=== PATIENT | male | born 1980 | race Caucasian/White ===

== ENCOUNTER 2023-09-14 01:04 | Emergency (ER) | payer MEDICAID, OTHER ==
[~2023-09-14] VITALS: Ht 175.3 cm; Wt 92.8 kg
[2023-09-14 02:54] LABS: Urine Bacteria NONE SEEN /hpf (None Seen); Urine Blood TRACE /uL (Negative); Urine Clarity Clear (Clear); Urine Color Yellow (Yellow); Urine Protein, UAD Negative (Negative); Urine Specific Gravity 1.019 (1.001-1.035); Urine Urobilinogen Normal (Negative); Urine WBC <1 /hpf (0 - 3)
[2023-09-14 02:59] LABS: COVID19 ANTIGEN SOFIA FIA NEGATIVE (NEGATIVE)
[2023-09-14] MEDS ORDERED: DexAMETHasone SOD PHOS 10MG/1ML VIAL INJ IM ONE (03:15)
[2023-09-14] MEDS ORDERED: CLINDAMYCIN HCL 150 MG CAP PO ONE (03:15)
[2023-09-14] MEDS ORDERED: HYDROcodone-ACET 5/325MG TAB PO ONE (03:15)
[2023-09-14] MEDS ORDERED: CLIN300C70 PO (03:16)
[2023-09-14] MEDS ORDERED: IBUP-1455 PO (03:16)
[2023-09-14 04:05] VITALS: BP 107/86; PULSE 100; RESP 18; TEMP 98.4; O2SAT 97
== END 2023-09-14 04:00 | disposition home or self-care (01) ==
LOC: ER 01:04
DX: R50.9 Fever, unspecified (principal); L03.113 Cellulitis of right upper limb; R07.89 Other chest pain; Z20.822 Contact with and (suspected) exposure to COVID-19
CPT/HCPCS: 36415; 71045; 73080; 81001; 87426; 96372; 99284; J1100

== ENCOUNTER 2023-09-17 16:53 | Emergency (ER) | payer MEDICAID ==
[~2023-09-17] VITALS: Ht 175.3 cm; Wt 95.5 kg
[~2023-09-17 16:53] MED LIST: CLIN300C70 PO; IBUP-1455 PO
[2023-09-17 17:19] VITALS: BP 139/85; PULSE 93; RESP 15; O2SAT 98
== END 2023-09-17 23:24 | disposition left against medical advice (07) ==
LOC: ER 16:53 → UNDOADMIN 21:49 → TELE 21:49 → ER 23:24
DX: L03.113 Cellulitis of right upper limb (principal); Z53.21 Procedure and treatment not carried out due to patient leaving prior to being seen by health care provider

== ENCOUNTER 2025-01-25 08:41 | Inpatient (IN) | payer MEDICAID ==
[~2025-01-25] VITALS: Ht 177.8 cm; Wt 96.6 kg
[~2025-01-25 08:41] MED LIST changes: +CLIN1CAP70 PO; -CLIN300C70 PO
[2025-01-25] MEDS ORDERED: LORazepam 2MG/ML-1ML VIAL IV ONE (09:00)
--- NOTE | 2025-01-25 09:05 | ECG ---
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
--- NOTE | 2025-01-25 09:07 | ED.PDOC ---
HPI Comments 44 year old male MYLES presents to the ED with chief complaint of chest pain. Patient reports that he has been experiencing left sided chest pain for the past 3 days, worsening today and with associated lightheadedness and facial numbness. Patient relays that he has been monitoring his BP over the past few days and it has been fluctuating from low to high multiple times throughout the day. Patient notes he is not currently on any BP medication. Patient denies any SOB, dizz iness, headache, blurred vision, weakness, or fever. Chief Complaint: Chest Pain Time Seen by MD: 09:04 Primary Care Provider: NONE Reviewed Notes: Nurses Notes, Care Trainer Notes, Medications, Allergies Allergies: Coded Allergies: NO KNOWN ALLERGIES (Unverified , 09/14/23) Home Meds Active Scripts Ibuprofen Micronized (Ibuprofen) 800 Mg Tab, 1 TAB PO Q8HR, #20 TAB As needed for fever or pain Prov:CARLOTA SHEARER NP 09/14/23 Clindamycin Hcl (Clindamycin Hcl) 300 Mg Cap, 1 CAP PO QID for 10 Days, #40 CAP Prov:CARLOTA SHEARER LINEN MANAGER 09/14/23 Information Source: Patient, Emergency Med Personnel Mode of Arrival: EMS Severity: Moderate Timing: Days Duration: Since onset Prehospital treatment: None Location: Chest (L) Radiation: No Radiation Quality: Aching Onset: At Rest Cardiac Risk Factors: Smoker PE Risk Factors: None History of: None Past Medical History PAST MEDICAL HISTORY: Denies Surgical History: Denies all surgeries Family History Family History: Reviewed,noncontributory to illness Social History Smoker: Other (Vapes) Alcohol: Denies ETOH Use Drugs: Denies Drug Use Lives In: Home Constitutional: denies: chills, diaphoresis, fatigue, fever, malaise, sweats, weakness, others EENTM: denies: blurred vision, double vision, ear bleeding, ear discharge, ear drainage, ear pain, ear ringing, eye pain, eye redness, hearing loss, mouth pain, mouth swelling, nasal discharge, nose bleeding, nose congestion, nose pain, photophobia, tearing, throat pain, throat swelling, voice changes, others Respiratory: denies: cough, hemoptysis, orthopnea, SOB at rest, shortness of breath, SOB with excertion, stridor, wheezing, others Cardiovascular: reports: chest pain, lightheadedness; denies: dizzy spells, diaphoresis, Dyspnea on exertion, edema, irregular heart beat, left arm pain, palpitations, PND, syncope, others Gastrointestinal: denies: abdomen distended, abdominal pain, blood streaked bowels, constipated, diarrhea, dysphagia, difficulty swallowing, hematemesis, melena, nausea, poor appetite, poor fluid intake, rectal bleeding, rectal pain, vomiting, others Genitourinary: denies: burning, dysuria, flank pain, frequency, hematuria, incontinence, penile discharge, penile sore, pain, testicle pain, testicle swelling, urgency, others Neurological: reports: numbness (Facial); denies: dizziness, fainting, headache, left sided numbness, left sided weakness, paresthesia, pre-existing deficit, right sided numbness, right sided weakness, seizure, speech problems, tingling, tremors, weakness, others Musculoskeletal: denies: back pain, gout, joint pain, joint swelling, muscle pain, muscle stiffness, neck pain, others Integumetry: denies: bruises, change in color, change in hair/nails, dryness, laceration, lesions, lumps, rash, wounds, others Allergic/Immunocompromised: denies: Difficulty Healing, Frequent Infections, Hives, Itching, others Hematologic/Lymphatic: denies: anemia, blood clots, easy bleeding, easy bruising, swollen glands, others Endocrine: denies: excessive hunger, excessive sweating, excessive thirst, excessive urination, flushing, intolerance to cold, intolerance to heat, unexplained weight gain, unexplained weight loss, others Psychiatric: denies: anxiety, bipolar disorder, depression, hopeless, panic disorder, schizophrenia, sleepless, suicidal, others All Other Systems: Reviewed and Negative Physical Exam General Appearance: Moderate Distress, Normal HEENT: Normal ENT Inspection, PERRL/EOMI Neck: Full Range of Motion, Non-Tender, Normal, Normal Inspection Respiratory: Chest Non-Tender, Lungs Clear, No Accessory Muscle Use, No Respiratory Distress, Normal Breath Sounds Cardiovascular: No Edema, No JVD, No Murmur, No Gallop, Normal Peripheral Pulses, Regular Rate/Rhythm Breast Exam: Deferred Gastrointestinal: No Organomegaly, Non Tender, No Pulsatile Mass, Normal Bowel Sounds, Soft Genitalia: Deferred Pelvic: Deferred Rectal: Deferred Extremities: No calf tenderness, Normal capillary refill, Normal inspection, Normal range of motion, Non-tender, No pedal edema Musculoskeletal : Apperance: Normal Neurologic: Alert, 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 Was a procedure done?: No CP Differential Dx Differential Diagnosis: A-fib, A-Flutter, Angina, Anxiety / Panic Attack, Atrial Dysrhythmia, Electrolyte Disorder X-Ray, Labs, Meds, VS Vital Signs Date Time Temp Pulse Resp B/P (MAP) Pulse Ox O2 Delivery O2 Flow Rate FiO2 01/25/25 09:16 89 16 98 Room Air* 0 21 01/25/25 08:54 91 01/25/25 08:41 98.0 95 24 153/97 (115) 95 98.0 Lab Test 01/25/25 09:14 Range/Units White Blood Count 8.2 4.4-10.8 10^3/uL Red Blood Count 5.22 4.5-5.90 10^6/uL Hemoglobin 16.6 13.5-17.5 g/dL Hematocrit 46.8 41.0-53.0 % Mean Corpuscular Volume 89.7 80.0-100.0 fL Mean Corpuscular Hemoglobin 31.7 28.0-32.0 pg Mean Corpuscular Hemoglobin Concent 35.4 32.0-36.0 g/dL Red Cell Distribution Width 13.1 11.8-14.3 % Platelet Count 268 140-450 10^3/uL Mean Platelet Volume 7.9 6.9-10.8 fL Neutrophils (%) (Auto) 71.7 37.0-80.0 % Lymphocytes (%) (Auto) 22.4 10.0-50.0 % Monocytes (%) (Auto) 4.7 0.0-12.0 % Eosinophils (%) (Auto) 0.5 0.0-7.0 % Basophils (%) (Auto) 0.7 0.0-2.0 % Neutrophils # (Auto) 5.9 1.6-8.6 10 ^3/uL Lymphocytes # (Auto) 1.8 0.4-5.4 10 ^3/uL Monocytes # (Auto) 0.4 0-1.3 10 ^3/uL Eosinophils # (Auto) 0 0-0.8 10 ^3/uL Basophils # (Auto) 0.1 0-0.2 10 ^3/uL Nucleated Red Blood Cells 0.0 % Sodium Level 139 136-145 mmol/L Potassium Level 3.9 3.5-5.1 mmol/L Chloride Level 105 98-107 mmol/L Carbon Dioxide Level 26 20-31 mmol/L Anion Gap 8 5-15 Blood Urea Nitrogen 14 9-23 mg/dL Creatinine 1.04 0.700-1.30 mg/dL Glomerular Filtration Rate Calc 92 >90 mL/min BUN/Creatinine Ratio 13.5 10.0-20.0 Serum Glucose 113 H 74-106 mg/dL Calcium Level 9.7 8.7-10.4 mg/dL Troponin I High Sensitivity < 3 L </=54 ng/L Current Medications Medications (Trade) Dose Ordered Sig/Dylan Route Start Time Stop Time Status Last Admin Aspirin 325 mg ONCE ONCE PO 01/25/25 09:00 01/25/25 09:01 DC 01/25/25 09:19 Lorazepam (Ativan Tablet) 1 mg ONCE ONCE PO 01/25/25 09:15 01/25/25 09:16 DC 01/25/25 09:18 Patient alert. Complaining of chest discomfort. Was given aspirin. Vitals stable. Anxious. Was given Ativan. WBC within normal limits. Hemoglobin within normal limits. Abdomen is soft nontender. No sign of distress. EKG reviewed does not show any acute changes. Mild elevation blood pressure. Explained to the patient. Continue cardiac monitoring. Has risk factors for coronary artery disease. Cardiac marker within normal limits. Time of 1ST Reevaluation: 10:04 Reevaluation 1ST: Unchanged Patient Education/Counseling: Diagnosis, Treatment Family Education/Counseling: No Family Present Additional Information Previous visit documents reviewed: 09/17/23 for wound check The following tests were ordered, and results were reviewed by me: BMP, CBC, Trop Additional Information was gathered from interviewing the following independent historians: EMS I reviewed and agreed with the following test results read by other providers: None I discussed treatment and results with medical personnel and: Patient Comprehensive systems review obtained and negative except for what is stated in the HPI. Departure 1 Departure Time of Disposition: 09:59 Impression: Primary Impression: HTN (hypertension) Qualified Codes: I10 - Essential (primary) hypertension Additional Impression: Chest pain of unknown etiology Disposition: ADMITTED INPATIENT Admit to: Med Surg Condition: Guarded Critical Care Note Critical Care Time?: No Stability Stability form required: No Heart Score Heart Score: Heart Score Response (Comments) Value History Moderate Suspicious 1 EKG Normal 0 Age <45 0 Risk Factors 1 or 2 risk factors 1 Troponin Normal limit 0 Total 2 I personally scribed for TIRSO LITTLEJOHN MD ([email or web address]) on 01/25/25 at 09:07. Electronically submitted by Reg Gaines ([email or web address]). TIRSO LITTLEJOHN MD Jan 25, 2025 09:07
[2025-01-25 09:16] VITALS: PULSE 89; RESP 16; O2SAT 98
[2025-01-25] MEDS: LORazepam 0.5 MG TAB PO ONE (09:18)
[2025-01-25] MEDS: ASPirin 325 MG TAB PO ONE (09:19)
[2025-01-25 09:27] LABS: Basophils # (auto) 0.1 10 ^3/uL (0-0.2); Basophils % (auto) 0.7 % (0.0-2.0); Eosinophils # (auto) 0 10 ^3/uL (0-0.8); Eosinophils % (auto) 0.5 % (0.0-7.0); Hematocrit 46.8 % (41.0-53.0); Hemoglobin 16.6 g/dL (13.5-17.5); Lymphocytes # (auto) 1.8 10 ^3/uL (0.4-5.4); Lymphocytes % (auto) 22.4 % (10.0-50.0); Mean Corpuscular Hemoglobin 31.7 pg (28.0-32.0); Mean Corpuscular Hgb Conc. 35.4 g/dL (32.0-36.0); Mean Corpuscular Volume 89.7 fL (80.0-100.0); Monocytes # (auto) 0.4 10 ^3/uL (0-1.3); Monocytes % (auto) 4.7 % (0.0-12.0); Neutrophils # (auto) 5.9 10 ^3/uL (1.6-8.6); Neutrophils % (auto) 71.7 % (37.0-80.0); Platelet Count (auto) 268 10^3/uL (140-450); Red Blood Cells 5.22 10^6/uL (4.5-5.90); Red Cell Distribution Width 13.1 % (11.8-14.3); White Blood Cell 8.2 10^3/uL (4.4-10.8)
[2025-01-25 09:52] LABS: Chloride 105 mmol/L (98-107); Potassium 3.9 mmol/L (3.5-5.1); Sodium 139 mmol/L (136-145)
[2025-01-25 09:53] LABS: Anion Gap 8 (5-15); Carbon Dioxide 26 mmol/L (20-31)
[2025-01-25 09:54] LABS: Calcium 9.7 mg/dL (8.7-10.4)
[2025-01-25 09:59] LABS: BUN/Creatinine Ratio 13.5 (10.0-20.0); Blood Urea Nitrogen 14 mg/dL (9-23)
[2025-01-25 10:02] LABS: Glucose 113 mg/dL (74-106)
--- NOTE | 2025-01-25 10:29 | DVHHP2 ---
History of Present Illness Reason for Visit: Chest pain History of Present Illness 44-year-old male no past medical history surgical history just a root canal chief complaint patient states that he has been trending his blood pressure for the last three days he noticed that there higher than normal. Patient states he has been having chest pain has been no his left chest wall is pressure in nature is constant he states relaxant makes it better anxiety makes it worse he has never had chest pain in the past and has not has a history of cardiac disease for family history early demise. Patient did complain of some headache and lightheadedness with the elevated blood pressure. He states he was not taking any medications. He noticed his pressure has been consistently high since Sunday. Patient states he has not seen a primary doctor in regards in his symptoms. When evaluating patient's labs and imaging nitro was given aspirin CBC was unremarkable CMP unremarkable troponin was negative chest x-ray was unremarkable. With these findings we will admit and do echocardiogram if abnormal consider Cards consult Past Medical History Denies any medical problems Past Surgical History Denies any surgical history Family History Reviewed, non-contributory to the management of this case. Past Social History Patient does vape by history but denies drug or alcohol use Review of Systems Constitutional: No: Fever, Chills, Sweats, Weakness, Malaise, Other Eyes: No: Pain, Vision change, Conjunctivae inflammation, Eyelid inflammation, Other, Redness ENT: No: Ear pain, Ear discharge, Nose pain, Nose discharge, Nose congestion, Mouth pain, Mouth swelling, Throat pain, Throat swelling, Other Respiratory: No: Cough, Dry, Shortness of breath, SOB with excertion, Wheezing, Hemoptysis, Pleuritic Pain, Sputum, Wheezing, Other Cardiovascular: Chest Pain; No: Palpitations, Orthopnea, Paroxysmal Noc. D yspnea, Edema, Lt Headedness, Other Gastrointestinal: No: Nausea, Vomiting, Abdominal Pain, Diarrhea, Constipation, Melena, Hematochezia, Other Genitourinary: No Dysuria, No Frequency, No Incontinence, No Hematuria, No Retention, No Other Musculoskeletal: No: other, neck pain, shoulder pain, arm pain, back pain, hand pain, leg pain, foot pain Skin: No: Rash, Lesions, Jaundice, Bruising, Other Neurological: Other (Lightheadedness headache and dizziness); No: Weakness, Numbness, Incoordination, Change in speech, Confusion, Seizures Allergies: Coded Allergies: NO KNOWN ALLERGIES (Unverified , 09/14/23) Exam Vital Signs Vital Signs Date Time Temp Pulse Resp B/P (MAP) Pulse Ox O2 Delivery O2 Flow Rate FiO2 01/25/25 09:16 89 16 98 Room Air* 0 21 01/25/25 08:41 98.0 153/97 (115) 98.0 General Appearance: Alert, Oriented X3, Cooperative, No acute distress HEENT: Atraumatic, PERRLA, EOMI, Mucous membr. moist/pink Respiratory: Clear to auscultation, Normal air movement Cardiovascular: Regular rate, Normal S1, Normal S2, No murmurs Abdominal: Normal bowel sounds, Soft, No tenderness, No hepatospenomegaly, No masses Extremities: No clubbing, No cyanosis, No edema, Normal pulses, No tenderness/swelling Skin: No rashes, No breakdown, No significant lesion Neuro: Normal gait, Normal speech, Strength at 5/5 X4 ext, Normal tone, Sensation intact, Cranial nerves 3-12 NL Psych/Mental Status: Mental status NL, Mood NL Labs/Xrays I reviewed labs, imaging CT scan abdomen pelvis, EKG and all diagnostic studies on this patient from ED records and the medical chart Labs Test 01/25/25 09:14 Range/Units White Blood Count 8.2 4.4-10.8 10^3/uL Red Blood Count 5.22 4.5-5.90 10^6/uL Hemoglobin 16.6 13.5-17.5 g/dL Hematocrit 46.8 41.0-53.0 % Mean Corpuscular Volume 89.7 80.0-100.0 fL Mean Corpuscular Hemoglobin 31.7 28.0-32.0 pg Mean Corpuscular Hemoglobin Concent 35.4 32.0-36.0 g/dL Red Cell Distribution Width 13.1 11.8-14.3 % Platelet Count 268 140-450 10^3/uL Mean Platelet Volume 7.9 6.9-10.8 fL Neutrophils (%) (Auto) 71.7 37.0-80.0 % Lymphocytes (%) (Auto) 22.4 10.0-50.0 % Monocytes (%) (Auto) 4.7 0.0-12.0 % Eosinophils (%) (Auto) 0.5 0.0-7.0 % Basophils (%) (Auto) 0.7 0.0-2.0 % Neutrophils # (Auto) 5.9 1.6-8.6 10 ^3/uL Lymphocytes # (Auto) 1.8 0.4-5.4 10 ^3/uL Monocytes # (Auto) 0.4 0-1.3 10 ^3/uL Eosinophils # (Auto) 0 0-0.8 10 ^3/uL Basophils # (Auto) 0.1 0-0.2 10 ^3/uL Nucleated Red Blood Cells 0.0 % Sodium Level 139 136-145 mmol/L Potassium Level 3.9 3.5-5.1 mmol/L Chloride Level 105 98-107 mmol/L Carbon Dioxide Level 26 20-31 mmol/L Anion Gap 8 5-15 Blood Urea Nitrogen 14 9-23 mg/dL Creatinine 1.04 0.700-1.30 mg/dL Glomerular Filtration Rate Calc 92 >90 mL/min BUN/Creatinine Ratio 13.5 10.0-20.0 Serum Glucose 113 H 74-106 mg/dL Calcium Level 9.7 8.7-10.4 mg/dL Troponin I High Sensitivity < 3 L </=54 ng/L Assessment/Plan Assessment/Plan acute chest pain r/o acs trop x3 negative ekg no stemi ordered metoprolol asa atorvastatin ordered Echocardiogram follow-up results if abnormal consult cards ordered morphine as needed for pain, ordered nitro prn ordered chest xray fu results acute dizziness with elevated bp ordered ct brain fu results acute new onset hypertension can consider to start lisinopril low dose if continued elevated bp fen/ppx diet hl scd no dvt ppx since pt is ambulatory no gi ppx since pt had no hx of gerds or gi bleed plan admit to tele cards consult Plan discussed with: Patient Date of Service: Jan 25, 2025 Billing Provider: UNRULY DUNN DNP Common Visit Codes: 81554-[id number] INP/OBS CARE (HIGH) UNRULY DUNN DNP Jan 25, 2025 10:29
[2025-01-25] MEDS: NITROGLYCERIN 0.4 MG SL TAB SL ONE (10:34)
[2025-01-25] MEDS ORDERED: ONDANSETRON HCL 4 MG/2 ML VIAL IV PRN (11:15)
[2025-01-25] MEDS ORDERED: MORPHINE SULFATE 4 MG/ML SYR/VIAL IV PRN (11:15)
[2025-01-25] MEDS ORDERED: NITROGLYCERIN 0.4 MG SL TAB SL PRN ×2 (11:15)
--- NOTE | 2025-01-25 11:49 | DVH ---
EXAM: CT HEAD WITHOUT CONTRAST INDICATION: eval for acute headache TECHNIQUE: CT of the head without intravenous contrast. Radiation Dose : 1. Head: CT Dose: CTDI volume is 54.78 mGy. Dose-length product is 878.26 mGy*cm The dose indicators for CT are the volume Computed Tomography (CT) Dose Index (CTDIvol) and the Dose Length Product (DLP), and are measured in units of mGy and mGy-cm, respectively. These indicators are not patient dose, but values generated from the CT scanner acquisition factors. The report includes radiation exposure data for exposures received during this examination. COMPARISON: None FINDINGS: There is no evidence of acute intracranial hemorrhage, extra-axial collection, mass effect, midline s hift, herniation or hydrocephalus. The ventricles, sulci and cisterns are age appropriate. The owen-white differentiation is intact. Patchy periventricular and subcortical white matter hypoattenuation is nonspecific but may be related to small vessel ischemic disease. The visualized paranasal sinuses and mastoid air cells are clear. The surrounding soft tissues and osseous structures are unremarkable. IMPRESSION: 1. No acute intracranial abnormality. Radiation optimization: All CT scans at this facility use at least one of these dose optimization irvin hniques: automated exposure control mA and/or kV adjustment per patient size (includes targeted exam s where dose is matched to clinical indication) or iterative reconstruction.
[2025-01-25 13:45] VITALS: RESP 98; O2SAT 98
--- NOTE | 2025-01-25 16:08 | DVH ---
CHEST RADIOGRAPH Indication: chest pain Technique: Single frontal view of the chest was obtained COMPARISON: XY CHEST XRAY 1 VIEW on DOS: 09/14/23 FINDINGS: Lines and Tubes: None Lungs: Clear Pleura: No effusion. No pneumothorax. Cardiomediastinal contours: Unremarkable Bones: Unremarkable IMPRESSION: 1. No acute disease.
[2025-01-25 17:30] VITALS: BP 119/80; PULSE 76; RESP 20; TEMP 97.8; O2SAT 98
--- NOTE | 2025-01-25 18:56 | DVHSR ---
APPROVED REPORT EXAM: Two-dimensional and M-mode echocardiogram with Doppler and color Doppler. Blood Pressure: 120/79 mmHg INDICATION Chest Pain RISK FACTORS Height: 5' 9", Weight: 220 DIMENSIONS LVDd4.5 (3.8-5.7cm)LA (2D)3.5 (1.9-4.0cm)Aortic Root3.4 (2.0-3.7cm) LVDs3.2 (2.5-4.0cm)LA (MM) (1.9-4.0cm)Aortic Cusp Exc1.8 (1.5-2.0cm) EF (%) 55.0 (55-70%)Rt. Atrium3.9 (1.9-4.0cm)Asc. Aorta cm IVSd1.0 (0.7-1.1cm)RV (D) (1.8-2.4cm) PWd1.0 (0.7-1.1cm) Mitral Valve MitralMitral Stenosis E wave0.70m/sMV Mean GR.mmHg A wave0.80m/sMV Peak GR.mmHg E/A ratio0.92D MVAcm2 Aortic Valve Aortic ValveAortic Stenosis V10.90m/Levi Mean GR.3mmHg V21.20m/Levi Peak GR.6mmHg LVOT Diameter2.3 (1.8-2.4cm)Doppler AVA3.11cm2 Pulmonic Valve V20.60m/s Conclusion NORMAL LV EF AND IS 65% NORMAL VALVES NORMAL RV FUNCTION NO EFFUSION
[2025-01-25 20:00] VITALS: PULSE 73; RESP 18; O2SAT 98
[2025-01-25 20:38] VITALS: BP 114/73; PULSE 74; RESP 14; TEMP 97.8; O2SAT 99
[2025-01-25] MEDS: ATORVASTATIN 20 MG TAB PO SCH (21:17)
[2025-01-26 05:00] VITALS: BP 112/70; PULSE 77; RESP 16; TEMP 98; O2SAT 98
[2025-01-26 06:59] LABS: Basophils # (auto) 0.1 10 ^3/uL (0-0.2); Basophils % (auto) 0.8 % (0.0-2.0); Eosinophils # (auto) 0.1 10 ^3/uL (0-0.8); Eosinophils % (auto) 0.7 % (0.0-7.0); Hematocrit 45.7 % (41.0-53.0); Hemoglobin 15.6 g/dL (13.5-17.5); Lymphocytes # (auto) 2.7 10 ^3/uL (0.4-5.4); Lymphocytes % (auto) 31.8 % (10.0-50.0); Mean Corpuscular Hemoglobin 30.8 pg (28.0-32.0); Mean Corpuscular Hgb Conc. 34.1 g/dL (32.0-36.0); Mean Corpuscular Volume 90.5 fL (80.0-100.0); Monocytes # (auto) 0.5 10 ^3/uL (0-1.3); Monocytes % (auto) 5.6 % (0.0-12.0); Neutrophils # (auto) 5.3 10 ^3/uL (1.6-8.6); Neutrophils % (auto) 61.1 % (37.0-80.0); Nucleated Red Blood Cells % 0.1 %; Platelet Count (auto) 241 10^3/uL (140-450); Red Blood Cells 5.05 10^6/uL (4.5-5.90); Red Cell Distribution Width 13.1 % (11.8-14.3); White Blood Cell 8.6 10^3/uL (4.4-10.8)
[2025-01-26 07:19] LABS: Alanine Aminotransferase 17 U/L (7-40); Albumin 4.2 g/dL (3.2-4.8); Alkaline Phosphatase 80 U/L (46-116); Anion Gap 6 (5-15); Bilirubin, Total 0.6 mg/dL (0.2-1.0); Blood Urea Nitrogen 14 mg/dL (9-23); Calcium 9.2 mg/dL (8.7-10.4); Carbon Dioxide 28 mmol/L (20-31); Glucose 104 mg/dL (74-106); Sodium 141 mmol/L (136-145); Total Protein 6.4 g/dL (5.7-8.2)
[2025-01-26 07:24] LABS: Aspartate Aminotransferase 12 U/L (13-40); Chloride 107 mmol/L (98-107)
[2025-01-26 08:00] VITALS: PULSE 94
[2025-01-26 09:00] VITALS: BP 113/76; PULSE 92; RESP 20; TEMP 97.2; O2SAT 96
[2025-01-26] MEDS: DOCUSATE SOD 100 MG CAP PO SCH (09:23)
[2025-01-26] MEDS: ASPirin 81 mg TAB PO SCH (09:24)
--- NOTE | 2025-01-26 10:44 | ECG ---
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
[2025-01-26 11:15] LABS: Triglycerides 140 mg/dL (< 150)
[2025-01-26 11:16] LABS: LDL Cholesterol 121 mg/dL (< 100)
[2025-01-26 11:17] LABS: Cholesterol 169 mg/dL (< 200)
[2025-01-26 11:18] LABS: HDL Cholesterol 30 mg/dL (40-59)
[2025-01-26 13:17] VITALS: BP 133/87; PULSE 81; RESP 20; TEMP 97.4; O2SAT 96
[2025-01-26] MEDS ORDERED: LOSA-533 PO (13:35)
--- NOTE | 2025-01-26 18:23 | DVHDSRES ---
Discharge Summary Date of Admission Resident Creating Document: LEANNA MEDEL RESIDENT Jan 25, 2025 at 11:04 Date of Discharge: Jan 26, 2025 Admitting Diagnosis acute chest pain r/o acs acute dizziness with elevated bp acute new onset hypertension Wounds: none Labs/Diagnostic Data: Laboratory Results Test 01/26/25 06:22 01/25/25 13:19 01/25/25 09:14 White Blood Count 8.6 10^3/uL (4.4-10.8) Red Blood Count 5.05 10^6/uL (4.5-5.90) Hemoglobin 15.6 g/dL (13.5-17.5) Hematocrit 45.7 % (41.0-53.0) Mean Corpuscular Volume 90.5 fL (80.0-100.0) Mean Corpuscular Hemoglobin 30.8 pg (28.0-32.0) Mean Corpuscular Hemoglobin Concent 34.1 g/dL (32.0-36.0) Red Cell Distribution Width 13.1 % (11.8-14.3) Platelet Count 241 10^3/uL (140-450) Mean Platelet Volume 8.0 fL (6.9-10.8) Neutrophils (%) (Auto) 61.1 % (37.0-80.0) Lymphocytes (%) (Auto) 31.8 % (10.0-50.0) Monocytes (%) (Auto) 5.6 % (0.0-12.0) Eosinophils (%) (Auto) 0.7 % (0.0-7.0) Basophils (%) (Auto) 0.8 % (0.0-2.0) Neutrophils # (Auto) 5.3 10 ^3/uL (1.6-8.6) Lymphocytes # (Auto) 2.7 10 ^3/uL (0.4-5.4) Monocytes # (Auto) 0.5 10 ^3/uL (0-1.3) Eosinophils # (Auto) 0.1 10 ^3/uL (0-0.8) Basophils # (Auto) 0.1 10 ^3/uL (0-0.2) Nucleated Red Blood Cells 0.1 % Sodium Level 141 mmol/L (136-145) Potassium Level 4.0 mmol/L (3.5-5.1) Chloride Level 107 mmol/L (98-107) Carbon Dioxide Level 28 mmol/L (20-31) Anion Gap 6 (5-15) Blood Urea Nitrogen 14 mg/dL (9-23) Creatinine 1.00 mg/dL (0.700-1.30) Glomerular Filtration Rate Calc 96 mL/min (>90) BUN/Creatinine Ratio 14.0 (10.0-20.0) Serum Glucose 104 mg/dL (74-106) Calcium Level 9.2 mg/dL (8.7-10.4) Total Bilirubin 0.6 mg/dL (0.2-1.0) Aspartate Amino Transferase (AST) 12 U/L (13-40) Alanine Aminotransferase (ALT) 17 U/L (7-40) Alkaline Phosphatase 80 U/L (46-116) Total Protein 6.4 g/dL (5.7-8.2) Albumin 4.2 g/dL (3.2-4.8) Triglycerides Level 140 mg/dL (< 150) Cholesterol Level 169 mg/dL (< 200) LDL Cholesterol 121 mg/dL (< 100) HDL Cholesterol 30 mg/dL (40-59) Troponin I High Sensitivity < 3 ng/L (</=54) Magnesium Level 2.2 mg/dL (1.6-2.6) Other Laboratory Tests 01/26/25 06:22 Brief Hx & Hospital Course: Patient is a 44-year-old male with no significant past medical history presented to the ED with a chief complaint of left-sided chest pain. Patient reported that he was apparently well until 2 days prior to admission when he was at work and started to feel dizzy following which she came home and checked his blood pressure which was high with a SBP in 160 mmHg. He started to monitor his blood pressure and it went up and down with a maximum reading of 165/104 mmHg. Patient few hours prior to coming to the hospital had sudden onset left-sided dull, nonradiating chest pain which began while he was at rest. On arrival to the ED 12 lead EKG was done which showed sinus rhythm with no ST segment or T- wave changes. Troponin levels were within normal limits. Patient denied any family history of coronary artery disease, [place] before the age of 55. Patient denied alcohol use but does report using nicotine, has been vaping for the last few years and previously was smoking cigarettes. With a low suspicion of coronary artery disease, no further inpatient workup was required and the patient was discharged in stable condition to home. He was discharged on losartan 25 mg daily and advised to follow up in the discharge clinic in 2 weeks for further risk stratification. Patient was advised lifestyle modification and modifying diet to a DASH diet for better blood pressure control. Condition at Discharge: Good Final Diagnosis/Problems List Hypertensive heart diease Chest Pain, ACS ruled out Discharge Disposition: Home Discharge Instruct/Medications Diet: See Comment Diet comment: DASH diet Activity: No Restrictions, As Tolerated Follow Up/Referral: Follow up in the D/c clinic in 2 weeks Medications: as per EMR Discharge Statement: "Patient was advised to return to the ER or call 911 if any headaches, dizziness, shortness of breath, chest pain, abdominal pain, bleeding, fevers, or worsening of medical condition. Patient was counseled about treatment plan, medications, possible side effects, patientverbalized understanding. All questions were answered to the best of my ability. This discharge took greater then 30 minutes in planning, reviewing documentation, counseling the patient, and discussing with other team members." ASSESSMENT ASSESSMENT Assessment Hypertensive heart diease Chest Pain, ACS ruled out LEANNA MEDEL RESIDENT Jan 26, 2025 18:23
== END 2025-01-26 15:45 | disposition home or self-care (01) | DRG 756 ==
LOC: EDBD 08:41 → ER 08:41 → OVERFLOW 11:04 → TELE-WESTW 17:09
PROVIDERS: ADMIT Student in an Organized Health Care Education/Training Program; ATTEND Emergency Medicine
DX: F41.9 Anxiety disorder, unspecified (principal); I11.9 Hypertensive heart disease without heart failure; F17.290 Nicotine dependence, other tobacco product, uncomplicated; Z79.1 Long term (current) use of non-steroidal anti-inflammatories (NSAID); Z79.899 Other long term (current) drug therapy
CPT/HCPCS: 36415; 70450; 71045; 80048; 80053; 80061; 83735; 84484; 85025; 93005; 93306; G0378